=== PATIENT | female | born 2000 ===

== ENCOUNTER 2019-10-04 14:58 | Emergency (ER) | payer OTHER ==
[2019-10-04 15:25] VITALS: BP 109/71
--- NOTE | 2019-10-04 15:30 | UC ---
Lower Extremity/Ankle HPI - HPI Summary HPI Summary: Patient is a 19yo female presenting with right lateral foot pain since yesterday. Patient states the pain began 2 weeks ago so she took some time off. States started up again while running yesterday and notes pain with weight bearing since. Denies pain at rest. Denies radiating pain. Denies swelling and bruising. Denies numbness and tingling. Denies any known trauma or injury. - History of Current Complaint Chief Complaint: UCLowerExtremity Stated Complaint: FOOT PAIN Hx Obtained From: Patient Hx Last Menstrual Period: iud Pain Intensity: 7 Pain Scale Used: 0-10 Numeric - Allergies/Home Medications Allergies/Adverse Reactions: Allergies Allergy/AdvReac Type Severity Reaction Status Date / Time No Known Allergies Allergy Verified 10/04/19 15:26 Home Medications: Home Medications Clindamycin Phosphate [Clindamycin Phosphate 1 % TOPICAL] 1 % TOPICAL DAILY 09/22 [History Confirmed 10/04/19] Fexofenadine (NF) [Paulette (NF)] 60 mg PO DAILY 10/04/19 [History Confirmed 09/22] Ibuprofen TAB* [Motrin TAB* 400 MG] 400 mg PO Q6H PRN 10/04/19 [History Confirmed 10/04/19] PMH/Surg Hx/FS Hx/Imm Hx - Surgical History Surgical History: None - Social History Alcohol Use: Occasionally Substance Use Type: None Smoking Status (MU): Never Smoked Tobacco Review of Systems All Other Systems Reviewed And Are Negative: No Constitutional: Positive: Negative Skin: Positive: Negative. Negative: Bruising Respiratory: Positive: Negative Cardiovascular: Positive: Negative Neurovascular: Positive: Negative Musculoskeletal: Positive: Arthralgia - R lateral foot. Negative: Decreased ROM , Edema Neurological: Positive: Negative. Negative: Paresthesia, Numbness Physical Exam - Summary Physical Exam Summary: Vital Signs Reviewed: Yes A+Ox3, no distress Eyes: Conjunctiva Clear ENT: Hearing grossly normal neck: supple Respiratory: Positive: No respiratory distress, No accessory muscle use Cardiovascular: skin color reflect adequate perfusion Musculoskeletal Exam: BOYLE x 4 without difficulty, +mild TTP at base of 5th metatarsal. no erythema or ecchymosis, no edema, sensation grossly intact, ROM intact, Strength intact, cap refill <2sec Neurological: Positive: Alert, ambulatory without difficulty Psychological: Positive: age appropriate behavior Skin: Positive: no rash, no ecchymosis Vital Signs: Initial Vital Signs Temp 98.2 F 10/04/19 15:21 Pulse 60 10/04/19 15:21 Resp 16 10/04/19 15:21 BP 109/71 10/04/19 15:21 Pulse Ox 100 10/04/19 15:21 Diagnostics - Radiology R foot Radiology Interpretation Completed By: Radiologist Summary of Radiographic Findings: FINDINGS: The soft tissues are unremarkable. The bone mineralization is within normal limits. No fracture is identified. Anatomic alignment is maintained. The joint spaces are preserved. IMPRESSION: NO FRACTURE IDENTIFIED. (MR IS MORE SENSITIVE FOR STRESS-RELATED INJURY). Lower Extremity Course/Dx - Course Course Of Treatment: Negative radiographs of right foot. Discussed this with the patient. Instructed patient to continue with rest, ice, and use a postop shoe to help alleviate pain symptoms. Instructed patient to follow up with sports medicine next week for further evaluation of ongoing foot pain. Patient voiced understanding and agreed with the plan. - Differential Dx/Diagnosis Differential Diagnosis/HQI/PQRI: Contusion, Sprain, Strain, Tendonitis, Other - stress fracture Provider Diagnosis: Acute pain of right foot Discharge ED - Sign-Out/Discharge Documenting (check all that apply): Patient Departure All imaging exams completed and their final reports reviewed: Yes - Discharge Plan Condition: Stable Disposition: HOME Patient Education Materials: Arthralgia (ED) Referrals: [facility] [Outside] - If Needed Additional Instructions: As discussed, the xrays of your foot did not show any abnormalities. Rest, ice, elevate, and use the post-op shoe to help alleviate pain. You may also take over the counter pain medications as directed. Follow up with sports medicine listed below for further evaluation. - Billing Disposition and Condition Condition: STABLE Disposition: Home
== END 2019-10-04 16:25 | disposition home or self-care (01) ==
LOC: UCEAST 14:58
DX: M25.571 Pain in right ankle and joints of right foot (principal)
CPT/HCPCS: 99202; G0463